=== PATIENT | female | born 1965 | race Caucasian/White ===

== ENCOUNTER 2017-02-13 20:40 | Observation (INO) ==
[2017-02-13 21:37] LABS: Bilirubin,Urine Negative (Negative); Blood,Urine Moderate (Negative); Clarity,Urine Cloudy (Clear); Color,Urine Yellow (Yellow); Glucose,Urine (UA) Normal (Normal); Ketones,Urine Negative (Negative); Leukocyte Esterase,Urine Moderate (Negative); Nitrite,Urine Negative (Negative); Protein,Urine Negative (Neg-Trace); Specific Gravity,Urine 1.026 (1.010-1.025); Urobilinogen,Urine Normal (Normal)
[2017-02-13 21:40] LABS: Bacteria,Urine Moderate per hpf (None-Few); Hyaline Casts,Urine None Seen per lpf (None-Few); Squamous Epithelial Cell,Urine Many per lpf (None-Few); WBC,Urine 15-30 per hpf (0-3)
[2017-02-13 22:06] LABS: Basophils # 0.1 K/mcL (0.0-0.2); Basophils % 0.4 %; Eosinophils # 0.1 K/mcL (0.0-0.6); Eosinophils % 0.4 %; Hematocrit 41.4 % (35.3-44.9); Hemoglobin 13.6 g/dL (11.5-15.4); Immature Granulocytes % 0.4 % (0-4); Immature Platelets 3.1 % (1.1-6.1); Lymphocytes # 1.3 K/mcL (0.6-4.6); Lymphocytes % 8.9 %; Mean Corpuscular HGB Conc 32.9 g/dL (31.6-35.5); Mean Corpuscular Hemoglobin 29.1 pg (28.0-33.3); Mean Corpuscular Volume 88.5 fL (83.0-100.0); Mean Platelet Volume 9.6 fL (9.4-12.4); Monocytes # 0.6 K/mcL (0.0-1.3); Monocytes % 4.5 %; Neutrophils # 12.1 K/mcL (1.6-8.9); Platelet Count 256 K/mcL (140-400); Red Blood Count 4.68 M/mcL (3.82-4.97); Red Cell Distribution Width 12.4 % (11.5-14.5); Segmented Neutrophils % 85.4 %
[2017-02-13] MEDS ORDERED: Ondansetron 4 MG/2 ML VIAL IVP ONE (22:15)
[2017-02-13] MEDS ORDERED: *HR* HYDROmorphone (PF) 1 MG/ML SYRINGE IVP ONE (22:15)
--- NOTE | 2017-02-13 22:18 | Emergency Department Note ---
Disposition Clinical Impression: Abdominal pain Qualifiers: Abdominal location: right lower quadrant Qualified Code(s): R10.31 - Right lower quadrant pain Acute appendicitis Qualifiers: Acute appendicitis type: with localized peritonitis Qualified Code(s): K35.3 - Acute appendicitis with localized peritonitis Disposition: Admitted As Inpatient Condition: Good Referrals: NO,PCP [Non-Partnered Physician] - Forms: Work/School Release, ED Satisfaction Letter Time of Disposition: 23:18 Abdominal Pain HPI - General Chief Complaint: ED Abdominal Pain Stated Complaint: lower rt abdominal pain nausea Time Seen by Provider: 02/13/17 21:39 Source: patient Mode of arrival: ambulatory Limitations: no limitations Nursing Notes Reviewed: Yes Vital Signs Reviewed: Yes - History of Present Illness HPI Narrative: Patient presents to the ED with the chief complaint of abdominal pain. Patient reports that approximately 3 PM this evening she had the sudden onset of diffuse bilateral lower abdominal fullness and urge to defecate. She went to the bathroom and had 2 episodes of diarrhea that she described as "black" but not tarry and did not have any blood. He states that shortly thereafter, the pain remained in her lower abdomen, but she also developed a sharp, stabbing right lower quadrant pain. She has a history of kidney stones but states this does not feel like that at all because she normally gets pain in her back. She has had a partial hysterectomy previously and had both her ovaries removed. She complains of nausea but no vomiting. No fever or chills, chest pain, shortness of breath, vaginal bleeding or discharge. States she is otherwise fairly healthy with no major medical problems. Has had decreased appetite since 3 PM has not had anything to eat something. She does still have her appendix. Pain Scale: 8 - Related Data Allergies Allergy/AdvReac Type Severity Reaction Status Date / Time morphine AdvReac Nausea Verified 02/13/17 21:21 All systems ED: reviewed and negative except as stated. Gastrointestinal: Reports: abdominal pain, nausea, melena (possibly ) Genitourinary: Denies: hematuria Musculoskeletal: Denies: back pain Integumentary: Denies: rash Neurological: Denies: headache Abdominal Pain PMH - Past Medical History Medical history: Reports: no medical history Female Surgical History: Reports: hysterectomy Psychiatric history: Reports: anxiety, depression - Social History Smoking status: Current every day smoker Alcohol use: Reports: none Drug use: Reports: none Physical Exam - General Limitations: no limitations General appearance: alert, in no apparent distress - Head Head exam: atraumatic, normocephalic, normal inspection - Eye Eye exam: Present: normal appearance, PERRL, EOMI - ENT ENT exam: normal exam, normal oropharynx, mucous membranes dry - Neck Neck exam: Present: normal inspection, full ROM, trachea midline - Respiratory Respiratory exam: Present: normal lung sounds bilaterally - Cardiovascular Cardiovascular exam: Present: regular rate, normal rhythm, normal heart sounds - Abdominal Exam Abdominal exam: Present: soft, tenderness, diminished bowel sounds, tenderness at McBurney's Point. Absent: distention, guarding, rebound, psoas sign, obturator sign, heel tap sign, Burgos's sign, Rovsing's sign, pulsatile mass Abdominal tenderness: Present: RLQ, moderate - Rectal Exam Rectal exam: Present: deferred (wanted to try and have BM) - Extremities Exam Extremities exam: Present: normal inspection, full ROM. Absent: tenderness, pedal edema - Neurological Exam Neurological exam: Present: alert, oriented X3 - Psychiatric Psychiatric exam: Present: normal affect, normal mood - Skin Skin exam: Present: warm, dry, intact, normal color Course Course Narrative: 51-year-old female presenting with right lower quadrant and diffuse lower abdominal pain, nausea. Lab work ordered, CT will be determined based on her evaluation and lab work. - Reevaluation(s) Reevaluation #1: Patient does appear to have infected urine as well as a leukocytosis. Chemistry and renal function pending. Due to her pain, we will CT her abdomen and pelvis to evaluate for nephrolithiasis. Due to her history of such and also will evaluate the appendix. Patient is agreeable. Time: 22:32 Reevaluation #2: Patient has appendicitis, 9 mm, no rupture or abscess. Spoke with the on-call surgeon, Dr. Garner. Will admit to his service. Requested Zosyn, pain medication, IV fluids. Patient agreeable. Vital Signs Temperature 97.7 F 02/13/17 21:18 Pulse Rate 88 02/13/17 21:18 Respiratory Rate 20 02/13/17 21:18 Blood Pressure 113/79 02/13/17 21:18 O2 Sat by Pulse Oximetry 99 02/13/17 21:18 Temperature 97.7 F 02/13/17 21:18 Pulse Rate 73 02/13/17 23:21 Respiratory Rate 16 02/13/17 23:21 Blood Pressure 107/69 02/13/17 23:21 O2 Sat by Pulse Oximetry 95 02/13/17 23:21 Oxygen Delivery Oxygen Delivery Room Air Abdominal Pain - Lab Data Result diagrams: 02/13/17 21:56 02/13/17 21:56 Lab Results 02/13/17 02/13/17 02/13/17 Range/Units 21:33 21:56 21:56 WBC 14.1 H (4.3-11.1) K/mcL RBC 4.68 (3.82-4.97) M/mcL Hgb 13.6 (11.5-15.4) g/dL Hct 41.4 (35.3-44.9) % MCV 88.5 (83.0-100.0) fL MCH 29.1 (28.0-33.3) pg MCHC 32.9 (31.6-35.5) g/dL RDW 12.4 (11.5-14.5) % Plt Count 256 (140-400) K/mcL MPV 9.6 (9.4-12.4) fL Immature Gran % 0.4 (0-4) % Seg Neutrophils % 85.4 % Lymphocytes % 8.9 % Monocytes % 4.5 % Eosinophils % 0.4 % Basophils % 0.4 % Neutrophils # 12.1 H (1.6-8.9) K/mcL Lymphocytes # 1.3 (0.6-4.6) K/mcL Monocytes # 0.6 (0.0-1.3) K/mcL Eosinophils # 0.1 (0.0-0.6) K/mcL Basophils # 0.1 (0.0-0.2) K/mcL Immature Plt Fraction 3.1 (1.1-6.1) % Sodium 139 (136-145) mEq/L Potassium 4.1 (3.5-4.5) mEq/L Chloride 105 (98-109) mEq/L Carbon Dioxide 27 (19-29) mEq/L BUN 17 (7-20) mg/dL Creatinine 0.89 (0.57-1.11) mg/dL Est GFR ( Amer) > 60 (> 60) Est GFR (Non-Af Amer) > 60 (> 60) BUN/Creatinine Ratio 19 (6-26) Glucose 125 H (70-99) mg/dL Calculated Osmolality 291 (280-300) Calcium 9.6 (8.6-10.8) mg/dL Total Bilirubin 0.3 (0.2-1.2) mg/dL Direct Bilirubin 0.1 (0.0-0.5) mg/dL Indirect Bilirubin 0.2 (0.0-1.2) mg/dL AST 16 (5-34) Units/L ALT 21 (0-55) Units/L Alkaline Phosphatase 90 (38-126) Units/L Serum Total Protein 7.7 (6.0-8.3) g/dL Albumin 3.7 (3.5-5.0) g/dL Globulin 4.0 H (2.4-3.5) g/dL Albumin/Globulin Ratio 0.9 L (1.1-2.2) Lipase 27 (8-78) Units/L Urine Color Yellow (Yellow) Urine Clarity Cloudy A (Clear) Urine pH 6.0 (5.0-8.0) pH Units Ur Specific [place] 1.026 H (1.010-1.025) Urine Protein Negative (Neg-Trace) mg/dL Urine Glucose (UA) Normal (Normal) mg/dL Urine Ketones Negative (Negative) mg/dL Urine Blood Moderate H (Negative) Urine Nitrite Negative (Negative) Urine Bilirubin Negative (Negative) Urine Urobilinogen Normal (Normal) mg/dL Ur Leukocyte Esterase Moderate H (Negative) Urine Microscopic RBC 5-15 H (0-3) per hpf Urine Microscopic WBC 15-30 H (0-3) per hpf Ur Squamous Epith Cells Many H (None-Few) per lpf Urine Bacteria Moderate H (None-Few) per hpf Hyaline Casts None Seen (None-Few) per lpf Ur Culture Indicated? YES A (NO) Attestation Statement - Attestation Attestation: I, Steve Mario MD, personally performed a history and physical exam of the patient and discussed their management with the resident. I reviewed the resident's note and agree with the documented findings, medical decision making , and plan of care. 41-year-old female presents to the emergency department with a complaint of diffuse lower abdominal pain which started gradually about 3 PM this afternoon. She had a couple of bowel movements but the pain continued. Movements were dark. No gross blood. No dysuria or gross hematuria. No increased urinary frequency. She does seem to have some decreased urine output. Some nausea but no vomiting or diarrhea. On examination patient is a well-developed obese female in no acute distress. She is alert and oriented 3. There is no cyanosis or diaphoresis. Breath sounds are clear and equal bilaterally. Heart regular rate and rhythm. Abdomen is soft with normal bowel sounds. There is mild diffuse lower abdominal tenderness with moderate right lower quadrant tenderness with mild guarding. No rebound tenderness. Labs reviewed. WBC 14.1 with 85.4% segs. Some UTI on urinalysis. CT of the abdomen and pelvis shows acute appendicitis with no evidence of perforation or abscess. The surgeon electronics system mechanic, Dr. Garner, was consulted and accepted admission of the patient.
[2017-02-13 22:22] LABS: Alanine Aminotransferase 21 Units/L (0-55); Albumin 3.7 g/dL (3.5-5.0); Albumin/Globulin Ratio 0.9 (1.1-2.2); Alkaline Phosphatase 90 Units/L (38-126); Aspartate Amino Transferase 16 Units/L (5-34); BUN/Creatinine Ratio 19 (6-26); Bilirubin,Direct 0.1 mg/dL (0.0-0.5); Bilirubin,Indirect 0.2 mg/dL (0.0-1.2); Bilirubin,Total 0.3 mg/dL (0.2-1.2); Blood Urea Nitrogen 17 mg/dL (7-20); Calcium 9.6 mg/dL (8.6-10.8); Carbon Dioxide 27 mEq/L (19-29); Chloride 105 mEq/L (98-109); Glucose 125 mg/dL (70-99); Lipase 27 Units/L (8-78); Osmolality,Calculated 291 (280-300); Potassium 4.1 mEq/L (3.5-4.5); Sodium 139 mEq/L (136-145); Total Protein 7.7 g/dL (6.0-8.3); eGFR For African Americans > 60 (> 60); eGFR For Non-African Americans > 60 (> 60)
[2017-02-13] MEDS ORDERED: Piperacillin/Tazobactam 3.375 GM in D5% in Water (Mini-Bag+) 100 ML IVPB ONE (23:13)
[2017-02-13] MEDS ORDERED: 0.9 % Sodium Chloride 1,000 ML IVC SCH (23:15)
[2017-02-13] MEDS ORDERED: *HR* HYDROmorphone (PF) 1 MG/ML SYRINGE IVP SCH (23:30)
[2017-02-14] MEDS ORDERED: Ketorolac 15 MG/ML VIAL IVP ONE ×2 (00:55→11:57)
[2017-02-14 01:36] LABS: Basophils # 0.1 K/mcL (0.0-0.2); Basophils % 0.4 %; Eosinophils # 0.1 K/mcL (0.0-0.6); Eosinophils % 0.4 %; Hematocrit 40.2 % (35.3-44.9); Hemoglobin 13.3 g/dL (11.5-15.4); Immature Granulocytes % 0.4 % (0-4); Lymphocytes # 1.8 K/mcL (0.6-4.6); Lymphocytes % 12.8 %; Mean Corpuscular HGB Conc 33.1 g/dL (31.6-35.5); Mean Corpuscular Hemoglobin 29.3 pg (28.0-33.3); Mean Corpuscular Volume 88.5 fL (83.0-100.0); Mean Platelet Volume 9.7 fL (9.4-12.4); Monocytes # 0.6 K/mcL (0.0-1.3); Monocytes % 4.5 %; Neutrophils # 11.6 K/mcL (1.6-8.9); Platelet Count 233 K/mcL (140-400); Red Blood Count 4.54 M/mcL (3.82-4.97); Red Cell Distribution Width 12.3 % (11.5-14.5); Segmented Neutrophils % 81.5 %
[2017-02-14] MEDS ORDERED: Ondansetron 4 MG/2 ML VIAL IVP PRN ×2 (01:39→13:58)
[2017-02-14] MEDS ORDERED: *HR* HYDROmorphone (PF) 1 MG/ML SYRINGE IVP PRN ×2 (01:45→13:58)
[2017-02-14] MEDS: Ringers Solution, Lactated 1,000 ML IVC SCH ×2 (01:53→08:52)
--- NOTE | 2017-02-14 09:17 | General Surg History&Physical ---
Date of Encounter: 02/14/17 Time of Encounter: 09:14 Assessment and Plan (1) Acute appendicitis Current Visit: Yes Status: Acute Plan for laparoscopic appendectomy. Risks, benefits, and expected outcomes explained to the patient and she agrees to proceed. The assessment and plan as outlined above was discussed with the patient and/or family members who expressed understanding and agreement. All questions were answered. Qualifiers: Acute appendicitis type: with localized peritonitis Qualified Code(s): K35.3 - Acute appendicitis with localized peritonitis History of Present Illness HPI: Ms. Martínez is a 51 year old female with right lower quadrant pain. The pain has been present since 5 PM yesterday. She has associated nausea no vomiting. Pain is moderate to severe in nature. It localized to right lower quadrant. She underwent a CT scan in the ER and the report by the ER physician is a was identified as appendicitis with periappendiceal stranding. 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) Alcohol use: none Drug use: none - Family History Mother Age: 65 Living Status: Still Living Hx Family Cardiac Disorders: No Hx Family Cancer: Yes (breast) Hx Family GI Disorders: No Hx Family Genitourinary Disorders: No Hx Family Endocrine Disorder: No Hx Family Musculoskeletal Disorders: Yes (spinal stenosis) Hx Family Neurologic Disorders: Yes (gibromyalgia) Hx Family Psychosocial Disorders: Yes (anxiety/ depression) Medications and Allergies Alprazolam [Xanax 0.5 MG Tablet] 0.5 mg PO TID PRN 02/13/17 [History] Citalopram [CeleXA] 30 mg PO DAILY 02/13/17 [History] Cranberry 1,000 mg PO DAILY 02/14/17 [History] Cyanocobalamin (Vitamin B-12) [Vitamin B12] 1,000 mcg PO DAILY 02/14/17 [History ] Ibuprofen [Motrin] 600 mg PO Q6HR PRN 02/14/17 [History] Magnesium Oxide [Magnesium] 400 mg PO DAILY 02/14/17 [History] Potassium Gluconate 90 mg PO DAILY 02/14/17 [History] Allergies morphine Adverse Reaction (Verified 02/13/17 21:21) Nausea Review of Systems All systems PM: reviewed and no additional remarkable complaints except as stated All systems PM: A 10-system review of systems was performed and is negative for pertinent findings except as documented above in the HPI. General Surgery Exam Initial Vital Signs Temp Pulse Resp BP Pulse Ox 97.7 F 88 20 113/79 99 02/13/17 21:18 02/13/17 21:18 02/13/17 21:18 02/13/17 21:18 02/13/17 21:18 - General physical appearance well nourished, no distress - Eyes PERRL - Neck trachea midline - Respiratory normal respiratory effort, clear to percussion - Cardiovascular Cardiovascular exam: Present: NR - Abdomen Abdomen general surgery: Present: soft, tender Abdominal Tenderness: Present: RLQ - Integumentary Integumentary general surgery: Present: no abnormal pigmentation - Psychiatric Psychiatric general surgery: Present: A&Ox3, speech is normal Results - Labs 02/14/17 01:25 02/13/17 21:56 Abnormal lab results WBC 14.2 K/mcL (4.3-11.1) H 02/14/17 01:25 Neutrophils # 11.6 K/mcL (1.6-8.9) H 02/14/17 01:25 Glucose 125 mg/dL (70-99) H 02/13/17 21:56 Globulin 4.0 g/dL (2.4-3.5) H 02/13/17 21:56 Albumin/Globulin Ratio 0.9 (1.1-2.2) L 02/13/17 21:56 Urine Clarity Cloudy (Clear) A 02/13/17 21:33 Ur Specific [place] 1.026 (1.010-1.025) H 02/13/17 21:33 Urine Blood Moderate (Negative) H 02/13/17 21:33 Ur Leukocyte Esterase Moderate (Negative) H 02/13/17 21:33 Urine Microscopic RBC 5-15 per hpf (0-3) H 02/13/17 21:33 Urine Microscopic WBC 15-30 per hpf (0-3) H 02/13/17 21:33 Ur Squamous Epith Cells Many per lpf (None-Few) H 02/13/17 21:33 Urine Bacteria Moderate per hpf (None-Few) H 02/13/17 21:33 Ur Culture Indicated? YES (NO) A 02/13/17 21:33 All other labs normal.
[2017-02-14] MEDS ORDERED: *HR* FentaNYL (PF) 100 MCG/2 ML VIAL ONE ×2 (09:24→10:52)
[2017-02-14] MEDS ORDERED: *HR* Propofol 200 MG/20 ML VIAL IVP ONE (09:24)
[2017-02-14] MEDS ORDERED: *HR* Midazolam HCl 2 MG/2 ML VIAL ONE (09:24)
[2017-02-14] MEDS ORDERED: Dexamethasone 4 MG/ML VIAL ONE (09:24)
[2017-02-14] MEDS ORDERED: Ondansetron 4 MG/2 ML VIAL ONE (09:24)
--- NOTE | 2017-02-14 10:05 | Anesthesia Evaluation PreOp ---
Date of Encounter: 02/14/17 Time of Encounter: 10:03 - Past History Planned Operation: Laparoscopic Appendectomy Cardiac History: Denies any Significant Hx Pulmonary History: Smoker (35 years) BILL CLERK History: Denies Any Significant HX Other Medical History: Other (obesity BMI=43.3, anxiety/depression) Anesthesia History: No Prior Anesthetic Complications, Past Anesthesia Test: Negative (02/14/2017) Alcohol Use: none Drug use: none Medications and Allergies Alprazolam [Xanax 0.5 MG Tablet] 0.5 mg PO TID PRN 02/13/17 [History] Citalopram [CeleXA] 30 mg PO DAILY 02/13/17 [History] Cranberry 1,000 mg PO DAILY 02/14/17 [History] Cyanocobalamin (Vitamin B-12) [Vitamin B12] 1,000 mcg PO DAILY 02/14/17 [History ] Ibuprofen [Motrin] 600 mg PO Q6HR PRN 02/14/17 [History] Magnesium Oxide [Magnesium] 400 mg PO DAILY 02/14/17 [History] Potassium Gluconate 90 mg PO DAILY 02/14/17 [History] Allergies morphine Adverse Reaction (Verified 02/13/17 21:21) Nausea - Meds/Allergy Pre-op Review Medications Reviewed: Yes Allergies Reviewed: Yes Beta Blockers on Current Med List: No Anesthesia Results - Labs 02/14/17 01:25 02/13/17 21:56 Anesthesia Exam Vital Signs/O2 Sat, Most Current Temp Pulse Resp BP Pulse Ox 97.7 F 74 15 99/62 92 02/14/17 08:20 02/14/17 08:20 02/14/17 08:20 02/14/17 08:20 02/14/17 08:20 Height: 5'5''/1.65 m Weight: 259 lbs/117.9 kg NPO (# of Hours): 8 Pain Scale: 0 Pain Scale Used: Numeric (1 - 10) - HEENT Pupil (Motor): EOMI Mallampati: III Teeth: Normal Oral Opening: Greater than 3 - BILL CLERK LOC: Oriented BILL CLERK Motor: Normal RUE, Normal LUE, Normal RLE, Normal LLE, Normal Face BILL CLERK Sensory: Normal: RUE, LUE, RLE, LLE, Face - Cardiac Rhythm: Regular Murmur: None - Pulmonary Breath Sounds: bilateral Clear Respiratory Effort: Symmetrical Anesthesia Assess/Plan ASA Score: 3 Modified Collette Scale for Level of Consciousness: Cooperative, oriented, and tranquil Anesthetic Plan: General Monitoring Plan: Standard Monitors Recovery Plan: PACU
[2017-02-14] MEDS ORDERED: Albuterol 2.5 MG/3 ML NEBULIZER IH ONE ×2 (10:13→13:58)
[2017-02-14] MEDS ORDERED: Albuterol 2.5 MG/3 ML NEBULIZER ONE (10:19)
--- NOTE | 2017-02-14 10:24 | Operative Note ---
Date of procedure: 02/14/17 Pre-op diagnosis: appendicitis Post-op diagnosis: same Procedure: Laparoscopic Appendectomy Anesthesia: DIANE Surgeon: Emre Garner Estimated blood loss (cc): 5 Condition: stable Disposition: same day Procedure in Detail: After informed consent, patient was taken to the operating room placed in supine position. After adequate sedation anesthesia the abdomen was prepped and draped. A 12 mm cannula was placed in the umbilicus. A 5 mm cannulas placed in suprapubic region and the left lower quadrant. Camera was inserted and the abdomen after a pneumoperitoneum. 2 [place] graspers were used to identify the base of the appendix. A appendiceal window was created. A VICKY endoscopic stapler was placed across the base. A vascular load was placed across the mesoappendix. Once the appendix was was placed in an Endobag and removed through the umbilicus. The right lower quadrant was suctioned dry no bleeding was identified. Remainder the pneumoperitoneum was evacuated. The umbilicus was closed with an 0 Vicryl suture in [id number] fashion. Skin was closed with 4-0 Vicryl suture and Dermabond.
[2017-02-14] MEDS ORDERED: CefOXitin 2,000 MG VIAL IVPB ONE (10:38)
[2017-02-14] MEDS ORDERED: Acetaminophen IV 1,000 MG/100 ML INFUS..BTL ONE (10:52)
[2017-02-14] MEDS ORDERED: Neostigmine Methylsulfate 3 MG/3 ML SYRINGE ONE (11:08)
[2017-02-14] MEDS ORDERED: Gabapentin 300 MG CAPSULE PO ONE (11:57)
--- NOTE | 2017-02-14 12:01 | Anesthesia Evaluation Post Op ---
Date of Encounter: 02/14/17 Time of Encounter: 11:59 - Vital Signs Vital Signs: Vital Signs/O2 Sat/Glucose, Most Current Temp Pulse Resp BP Pulse Ox 02/14/17 11:38 77 18 110/61 97 02/14/17 11:28 94 18 101/87 98 02/14/17 11:18 97.7 F 101 20 120/76 93 02/14/17 08:20 97.7 F 74 15 99/62 92 - Lungs Lungs: Clear Ascult./Percussion - Airway Airway: Non-obstructed - Cardiovascular Regular Rate - Mental Status Mental Status: Alert & Oriented, Answers Appropriately - Pain Pain Scale: 5 (adding addl Toradol) Pain Scale used: Numeric (1 - 10) - Nausea Vomiting Nausea Vomiting: Not Present - Hydration Hydration: Ice chips, Has not voided - Discharge PostOp Status: Transfer Patient to floor Anes Supervising Prov Stmt: Pt seen/evaluated, VSS and pt has met criteria for discharge to home. - MD Rose
[2017-02-14] MEDS ORDERED: Ringers Solution, Lactated 1,000 ML IVC SCH (13:58)
[2017-02-14] MEDS ORDERED: *HR* OxyCODONE/APAP 5/325 TABLET PO PRN (13:58)
[2017-02-14 14:06] VITALS: BP 96/61
--- NOTE | 2017-02-14 14:42 | Discharge Summary ---
Date of Encounter: 02/14/17 Time of Encounter: 14:39 - Discharge Diagnosis (1) Acute appendicitis Priority: Primary Status: Resolved Qualifiers: Acute appendicitis type: with localized peritonitis Qualified Code(s): K35.3 - Acute appendicitis with localized peritonitis - Discharge Medications Prescriptions: OxyCODONE/APAP 5/325 [Percocet 5/325 MG] 1 each PO Q6HR PRN #30 tablet PRN Reason: Pain Docusate [Colace] 100 mg PO BID #30 capsule Home Medications: Alprazolam [Xanax 0.5 MG Tablet] 0.5 mg PO TID PRN 02/13/17 [History] Citalopram [CeleXA] 30 mg PO DAILY 02/13/17 [History] Cranberry 1,000 mg PO DAILY 02/14/17 [History] Cyanocobalamin (Vitamin B-12) [Vitamin B12] 1,000 mcg PO DAILY 02/14/17 [History ] Docusate [Colace] 100 mg PO BID #30 capsule 02/14/17 [Rx] Ibuprofen [Motrin] 600 mg PO Q6HR PRN 02/14/17 [History] Magnesium Oxide [Magnesium] 400 mg PO DAILY 02/14/17 [History] OxyCODONE/APAP 5/325 [Percocet 5/325 MG] 1 each PO Q6HR PRN #30 tablet 02/14/17 [Rx] Potassium Gluconate 90 mg PO DAILY 02/14/17 [History] Allergies/Adverse Reactions: Allergies morphine Adverse Reaction (Verified 02/13/17 21:21) Nausea General Surgery Exam Initial Vital Signs Temp Pulse Resp BP Pulse Ox 97.7 F 88 20 113/79 99 02/13/17 21:18 02/13/17 21:18 02/13/17 21:18 02/13/17 21:18 02/13/17 21:18 - General physical appearance well developed, well nourished, no distress - Eyes normal ocular movement - ENT normal mucosa, atraumatic, normocephalic - Neck trachea midline - Respiratory normal respiratory effort, clear to auscultation - Cardiovascular Cardiovascular exam: Present: RRR, 15, 16 - Abdomen Abdomen general surgery: Present: bowel sounds present, soft, tender (Expected postoperative tenderness) - Incision Incision: Present: clean and dry, intact - Integumentary Integumentary general surgery: Present: warm and dry - Neurologic Present: CN 2-12 grossly intact - Musculoskeletal Present: normal gait, normal posture - Psychiatric Psychiatric general surgery: Present: appropriate, oriented to person, oriented to place, oriented to time, speech is normal, memory intact Date of admission: 02/13/17 23:35 Primary care physician: Shekhar Arguelles MD Discharging clinician: Emre Garner ([facility]) Anticipated date of discharge: 02/14/17 - Patient Status Disposition: Home, Self-Care Condition: Good Overall status at discharge: patient is progressing back to baseline - Discharge Instructions Follow Up With: Shekhar Arguelles MD [Primary Care Provider] - Emre Garner DO [Partnered Physician] - 02/26/17 2:50 pm (surgery follow-up) Forms: Work/School Release Additional Instructions: #1 may shower, no tub bath for 2 weeks #2 wash incisions with soap and water and pat dry daily #3 no lifting, pushing, pulling more than 15 pounds for the next 2 weeks #4 no driving until off narcotics for 24 hours and able to safely react in the car #5 may climb stairs - Diet and Activity Diet: advance to your usual diet - Hospital Course Hospital course: Ms. Martínez is a 51 year old female presented to the hospital with acute onset abdominal pain. She was found to have acute appendicitis and was taken to the operating room for laparoscopic appendectomy with Dr. Garner. We will begin discharge to home when the patient meets discharge criteria including vital signs are stable and afebrile, tolerating liquids without nausea or vomiting, pain is well controlled, ambulating and voiding without difficulty. We will plan for outpatient follow-up in the next 10-14 days. - Time Spent with Patient Total time spent providing and/or coordinating discharge services: Less than 30 minutes Labs on day of discharge: Labs from last 24 hours 02/14/17 02/14/17 02:10 01:25 WBC 14.2 H RBC 4.54 Hgb 13.3 Hct 40.2 MCV 88.5 MCH 29.3 MCHC 33.1 RDW 12.3 Plt Count 233 MPV 9.7 Immature Gran % 0.4 Seg Neutrophils % 81.5 Lymphocytes % 12.8 Monocytes % 4.5 Eosinophils % 0.4 Basophils % 0.4 Neutrophils # 11.6 H Lymphocytes # 1.8 Monocytes # 0.6 Eosinophils # 0.1 Basophils # 0.1 Urine Test Negative - Attending Attestation I examined this patient and my medical decision-making was reviewed with the LANDSCAPE NURSERYMAN/PA/Advanced Practice Nurse/Resident Physician. I agree with the documented findings, disposition and treatment plan as described except to the extent set forth below.
== END 2017-02-14 17:59 | disposition home or self-care (01) ==
LOC: 3ANU 20:40 → EMEROO 20:40 → 3ANU 23:59
PROVIDERS: ADMIT Surgery; ATTEND Surgery

== ENCOUNTER 2017-06-17 00:02 | Observation (INO) ==
[2017-06-17] MEDS ORDERED: Metoclopramide 10 MG/2 ML VIAL ONE (03:12)
[2017-06-17 03:20] LABS: BUN/Creatinine Ratio 20 (6-26); Blood Urea Nitrogen 15 mg/dL (7-20); Carbon Dioxide 22 mEq/L (19-29); Chloride 108 mEq/L (98-109); Glucose 98 mg/dL (70-99); Magnesium 2.2 mg/dL (1.6-2.6); Osmolality,Calculated 287 (280-300); Potassium 3.9 mEq/L (3.5-4.5); Sodium 138 mEq/L (136-145); eGFR For African Americans > 60 (> 60); eGFR For Non-African Americans > 60 (> 60)
[2017-06-17 03:25] LABS: Prothrombin Time 11.1 Seconds (9.4-12.1)
[2017-06-17 03:27] LABS: Bilirubin,Urine Negative (Negative); Blood,Urine Negative (Negative); Clarity,Urine Clear (Clear); Color,Urine Yellow (Yellow); Glucose,Urine (UA) Normal (Normal); Ketones,Urine Negative (Negative); Leukocyte Esterase,Urine Trace (Negative); Nitrite,Urine Negative (Negative); Protein,Urine Negative (Neg-Trace); Specific Gravity,Urine 1.011 (1.010-1.025); Urobilinogen,Urine Normal (Normal)
[2017-06-17 03:29] LABS: Bacteria,Urine None Seen per hpf (None-Few); Hyaline Casts,Urine None Seen per lpf (None-Few); Squamous Epithelial Cell,Urine Many per lpf (None-Few); WBC,Urine 0-3 per hpf (0-3)
[2017-06-17 03:53] LABS: Basophils # 0.1 K/mcL (0.0-0.2); Basophils % 0.7 %; Eosinophils # 0.2 K/mcL (0.0-0.6); Hematocrit 39.4 % (35.3-44.9); Hemoglobin 12.7 g/dL (11.5-15.4); Immature Granulocytes % 0.2 % (0-4); Lymphocytes # 3.4 K/mcL (0.6-4.6); Lymphocytes % 36.1 %; Mean Corpuscular HGB Conc 32.2 g/dL (31.6-35.5); Mean Corpuscular Hemoglobin 28.2 pg (28.0-33.3); Mean Corpuscular Volume 87.4 fL (83.0-100.0); Mean Platelet Volume 9.3 fL (9.4-12.4); Monocytes # 0.6 K/mcL (0.0-1.3); Monocytes % 6.3 %; Neutrophils # 5.2 K/mcL (1.6-8.9); Platelet Count 252 K/mcL (140-400); Red Blood Count 4.51 M/mcL (3.82-4.97); Red Cell Distribution Width 12.4 % (11.5-14.5); Segmented Neutrophils % 54.7 %
--- NOTE | 2017-06-17 04:21 | Emergency Department Note ---
Disposition Clinical Impression: Lesion of temporal lobe Headache Qualifiers: Headache type: unspecified Headache chronicity pattern: acute headache Intractability: not intractable Qualified Code(s): R51 - Headache Syncope Qualifiers: Syncope type: unspecified Qualified Code(s): R55 - Syncope and collapse Disposition: Admitted As Inpatient Condition: Fair Time of Disposition: 06:26 Headache HPI - General Chief Complaint: ED Headache Stated Complaint: headache passed out in car two days ago Time Seen by Provider: 06/17/17 03:48 Limitations: no limitations Nursing Notes Reviewed: Yes Vital Signs Reviewed: Yes - History of Present Illness HPI Narrative: Patient is a 51-year-old female who presents to [facility] ED with a chief complaint of headache. States her symptoms started 2 days ago. States at the time she had been sitting in her car and passed out for a few minutes. When she awoke, she was unsure of what had happened. Denies any prior episodes like this. States ever since then she has had a pain in the back of her head. No nausea, vomiting, fever or chills. No chest pain or shortness of breath. No problems with urination or bowel movements. Pt Subjective Complaint: headache Onset (ago): day(s) Onset description: gradual Location: occipital Pain Severity: moderate Pain Scale: 4 Quality: aching Improves with: nothing Worsens with: none Context: occurred at rest Associated symptoms: Reports: none. Denies: chest pain, cough, fever, nausea, vomiting, neck stiffness Treatments prior to arrival: none - Related Data Home Medications Medication Instructions Recorded Confirmed ALPRAZolam [Xanax 0.5 MG Tablet] 0.5 mg PO TID PRN 02/13/17 06/17/17 Citalopram [CeleXA] 30 mg PO DAILY 02/13/17 06/17/17 Cranberry 1,000 mg PO DAILY 02/14/17 06/17/17 Cyanocobalamin (Vitamin B-12) 1,000 mcg PO DAILY 02/14/17 06/17/17 [Vitamin B12] Magnesium Oxide [Magnesium] 400 mg PO DAILY 02/14/17 06/17/17 Potassium Gluconate 90 mg PO DAILY 02/14/17 06/17/17 Allergies Allergy/AdvReac Type Severity Reaction Status Date / Time morphine AdvReac Nausea Verified 02/13/17 21:21 All systems ED: reviewed and negative except as stated. Headache PMH - Past Medical History Medical history: Reports: no medical history Female Surgical History: Reports: hysterectomy Psychiatric history: Reports: anxiety, depression - Social History Smoking Status: Current every day smoker Alcohol use: Reports: rarely Drug use: Reports: none Physical Exam - General Limitations: no limitations General appearance: alert, in no apparent distress - Head Head exam: atraumatic, normocephalic, normal inspection - Eye Eye exam: Present: normal appearance, PERRL, EOMI - ENT ENT exam: normal exam, normal oropharynx, mucous membranes moist - Neck Neck exam: Present: normal inspection, full ROM, trachea midline - Chest Chest inspection: Present: normal inspection, symmetric chest wall rise - Respiratory Respiratory exam: Present: normal lung sounds bilaterally - Cardiovascular Cardiovascular exam: Present: regular rate, normal rhythm, normal heart sounds - Abdominal Exam Abdominal exam: Present: soft, Non-Tender. Absent: tenderness, distention, guarding, rebound, rigidity - Extremities Exam Extremities exam: Present: normal inspection, full ROM. Absent: tenderness, pedal edema - Back Exam Back exam: Present: normal inspection, full ROM. Absent: tenderness - Neurological Exam Neurological exam: Present: alert, oriented X3, CN II-XII intact. Absent: motor sensory deficit - Psychiatric Psychiatric exam: Present: normal affect, normal mood - Skin Skin exam: Present: warm, dry, intact, normal color Course Course Narrative: Patient seen and examined. A posterior headache radiates into her neck. No fevers or chills or neck stiffness to suggest meningitis. This is not the worse headache of her life. Patient had a syncopal episode 2 days ago. Basic labs, EKG, CT head ordered. - Reevaluation(s) Reevaluation #1: The emergency department experienced [employer] downtime while this patient was being seen. Her lab work is in the paper charting. No acute abnormalities on paper chart. Her CT scan is still pending. Time: 05:00 Reevaluation #2: CT of the head shows asymmetric area of low attenuation in the left temporal lobe. Follow-up MRI with diffusion imaging is recommended. No other acute abnormalities. I spoke the patient about the results. Due to concern for possible mass in this region versus a possible stroke as well as concern for nonexertional syncope, we will go ahead and admit to the medical service for further evaluation and MRI today. I spoke with the hospitalist Dr. Cordon who has accepted patient for admission. Time: 06:46 Vital Signs Temperature 97.7 F 06/17/17 00:03 Pulse Rate 90 06/17/17 00:03 Respiratory Rate 18 06/17/17 00:03 Blood Pressure 137/85 06/17/17 00:03 O2 Sat by Pulse Oximetry 94 06/17/17 00:03 Temperature 97.5 F L 06/17/17 07:18 Pulse Rate 64 06/17/17 07:18 Respiratory Rate 14 06/17/17 07:18 Blood Pressure 102/66 06/17/17 07:18 O2 Sat by Pulse Oximetry 96 06/17/17 07:18 Oxygen Delivery Oxygen Delivery Room Air Headache - Medical Records Medical records reviewed: Yes I reviewed the patient's medical records. - Lab Data Lab results reviewed: Yes I reviewed the patient's lab results. Result diagrams: 06/17/17 03:18 06/17/17 03:18 Lab Results 06/17/17 06/17/17 06/17/17 Range/Units 02:54 02:54 03:18 WBC 9.4 (4.3-11.1) K/mcL RBC 4.51 (3.82-4.97) M/mcL Hgb 12.7 (11.5-15.4) g/dL Hct 39.4 (35.3-44.9) % MCV 87.4 (83.0-100.0) fL MCH 28.2 (28.0-33.3) pg MCHC 32.2 (31.6-35.5) g/dL RDW 12.4 (11.5-14.5) % Plt Count 252 (140-400) K/mcL MPV 9.3 L (9.4-12.4) fL Immature Gran % 0.2 (0-4) % Seg Neutrophils % 54.7 % Lymphocytes % 36.1 % Monocytes % 6.3 % Eosinophils % 2.0 % Basophils % 0.7 % Neutrophils # 5.2 (1.6-8.9) K/mcL Lymphocytes # 3.4 (0.6-4.6) K/mcL Monocytes # 0.6 (0.0-1.3) K/mcL Eosinophils # 0.2 (0.0-0.6) K/mcL Basophils # 0.1 (0.0-0.2) K/mcL PT (9.4-12.1) Seconds INR APTT (26.0-36.0) Seconds Sodium (136-145) mEq/L Potassium (3.5-4.5) mEq/L Chloride (98-109) mEq/L Carbon Dioxide (19-29) mEq/L BUN (7-20) mg/dL Creatinine (0.57-1.11) mg/dL Est GFR ( Amer) (> 60) Est GFR (Non-Af Amer) (> 60) BUN/Creatinine Ratio (6-26) Glucose (70-99) mg/dL Calculated Osmolality (280-300) Calcium (8.6-10.8) mg/dL Magnesium (1.6-2.6) mg/dL Troponin I (0-0.03) ng/mL Urine Color Yellow (Yellow) Urine Clarity Clear (Clear) Urine pH 6.0 (5.0-8.0) pH Units Ur Specific [place] 1.011 (1.010-1.025) Urine Protein Negative (Neg-Trace) mg/dL Urine Glucose (UA) Normal (Normal) mg/dL Urine Ketones Negative (Negative) mg/dL Urine Blood Negative (Negative) Urine Nitrite Negative (Negative) Urine Bilirubin Negative (Negative) Urine Urobilinogen Normal (Normal) mg/dL Ur Leukocyte Esterase Trace H (Negative) Urine Microscopic RBC 5-15 H (0-3) per hpf Urine Microscopic WBC 0-3 (0-3) per hpf Ur Squamous Epith Cells Many H (None-Few) per lpf Urine Bacteria None Seen (None-Few) per hpf Hyaline Casts None Seen (None-Few) per lpf Ur Culture Indicated? YES A (NO) Urine Opiates Screen Negative (Jzbazv=688) ng/mL Ur Barbiturates Screen Negative (Fpulme=610) ng/mL Ur Phencyclidine Scrn Negative (Cutoff=25) ng/mL Ur Amphetamines Screen Negative (Bobsye=7626) ng/mL U Benzodiazepines Scrn Positive H (Gpffkj=057) ng/mL Urine Cocaine Screen Negative (Cutoff= 300) ng/mL U Marijuana (THC) Screen Negative (Cutoff = 50) ng/mL 06/17/17 06/17/17 06/17/17 Range/Units 03:18 03:18 03:18 WBC (4.3-11.1) K/mcL RBC (3.82-4.97) M/mcL Hgb (11.5-15.4) g/dL Hct (35.3-44.9) % MCV (83.0-100.0) fL MCH (28.0-33.3) pg MCHC (31.6-35.5) g/dL RDW (11.5-14.5) % Plt Count (140-400) K/mcL MPV (9.4-12.4) fL Immature Gran % (0-4) % Seg Neutrophils % % Lymphocytes % % Monocytes % % Eosinophils % % Basophils % % Neutrophils # (1.6-8.9) K/mcL Lymphocytes # (0.6-4.6) K/mcL Monocytes # (0.0-1.3) K/mcL Eosinophils # (0.0-0.6) K/mcL Basophils # (0.0-0.2) K/mcL PT 11.1 (9.4-12.1) Seconds INR 1.0 APTT 30.0 (26.0-36.0) Seconds Sodium 138 (136-145) mEq/L Potassium 3.9 (3.5-4.5) mEq/L Chloride 108 (98-109) mEq/L Carbon Dioxide 22 (19-29) mEq/L BUN 15 (7-20) mg/dL Creatinine 0.75 (0.57-1.11) mg/dL Est GFR ( Amer) > 60 (> 60) Est GFR (Non-Af Amer) > 60 (> 60) BUN/Creatinine Ratio 20 (6-26) Glucose 98 (70-99) mg/dL Calculated Osmolality 287 (280-300) Calcium 9.0 (8.6-10.8) mg/dL Magnesium 2.2 (1.6-2.6) mg/dL Troponin I 0.01 (0-0.03) ng/mL Urine Color (Yellow) Urine Clarity (Clear) Urine pH (5.0-8.0) pH Units Ur Specific [place] (1.010-1.025) Urine Protein (Neg-Trace) mg/dL Urine Glucose (UA) (Normal) mg/dL Urine Ketones (Negative) mg/dL Urine Blood (Negative) Urine Nitrite (Negative) Urine Bilirubin (Negative) Urine Urobilinogen (Normal) mg/dL Ur Leukocyte Esterase (Negative) Urine Microscopic RBC (0-3) per hpf Urine Microscopic WBC (0-3) per hpf Ur Squamous Epith Cells (None-Few) per lpf Urine Bacteria (None-Few) per hpf Hyaline Casts (None-Few) per lpf Ur Culture Indicated? (NO) Urine Opiates Screen (Jjtvei=211) ng/mL Ur Barbiturates Screen (Sdxtgp=368) ng/mL Ur Phencyclidine Scrn (Cutoff=25) ng/mL Ur Amphetamines Screen (Ygcfre=9048) ng/mL U Benzodiazepines Scrn (Czxahf=887) ng/mL Urine Cocaine Screen (Cutoff= 300) ng/mL U Marijuana (THC) Screen (Cutoff = 50) ng/mL - Radiology Data Radiology results reviewed: Yes I reviewed the patient's radiology results. Head CT 06/17/17 00:00 IMPRESSION: 1. Asymmetric area of low attenuation in the region of the left temporal lobe. Finding may be artifactual however true area of asymmetric low attenuation involving the left temporal lobe cannot be excluded based on this examination. Follow-up MRI examination with diffusion imaging may be helpful for more complete evaluation. 2. Otherwise no evidence of acute intracranial abnormality. D/ / Julius Raymundo MD / Julius Raymundo MD Interpreting Provider: Julius Raymundo MD - EKG Data EKG attestation: Yes I reviewed and interpreted this EKG. EKG results narrative: EKG done at 350 shows sinus bradycardia with a rate of [address] elevation or depression. Normal axis. EKG appears unchanged from prior EKG done 04/04/2014. Attestation Statement - Attestation Attestation: I, Altaf Mai, examined this patient and my medical decision-making was reviewed with the BIOINFORMATICS DEVELOPER/PA/Advanced Practice Nurse/Resident Physician. I agree with the documented findings, disposition and treatment plan as described except to the extent set forth below. 51-year-old female presents with concerns of headache. Patient states she syncopized 2 days ago and has since had a persistent headache. Patient denies a history of similar headaches in the past. Denies fever, chills, vomiting, chest pain, shortness of breath, palpitations. CT of the head showed area of low attenuation in the left temporal area. No focal neurologic deficits noted on exam in the emergency department. Patient will be admitted to the hospital for further evaluation and likely MRI and follow-up with neurology. Patient is stable in the emergency department
[2017-06-17] MEDS ORDERED: 0.9 % Sodium Chloride 1,000 ML IVC ONE (06:45)
[2017-06-17] MEDS ORDERED: Ondansetron 4 MG/2 ML VIAL IVP PRN (06:54)
[2017-06-17] MEDS ORDERED: Acetaminophen 325 MG TABLET PO PRN (06:54)
[2017-06-17] MEDS ORDERED: Naloxone 0.4 MG/ML INJ IVP PRN (06:54)
[2017-06-17] MEDS ORDERED: Ketorolac 30 MG/ML VIAL IVP PRN (06:54)
[2017-06-17] MEDS ORDERED: ALPRAZolam 0.5 MG TABLET PO PRN (06:58)
--- NOTE | 2017-06-17 07:02 | Internal Med History&Physical ---
Date of Encounter: 06/17/17 Time of Encounter: 06:59 Assessment and Plan (1) Depression with anxiety Current visit: Yes Status: Acute Continue Xanax per home dose. And Celexa (2) DVT prophylaxis Current visit: Yes Status: Acute Encourage ambulation. She does not require pharmacological prophylaxis. (3) Headache Current visit: Yes Status: Acute We will treat with Tylenol. She has recent onset headache. I am concerned this may be related to her CT findings suspicious for intracranial mass. Qualifiers: Headache type: unspecified Headache chronicity pattern: acute headache Intractability: not intractable Qualified Code(s): R51 - Headache (4) Lesion of temporal lobe Current visit: Yes Status: Acute Radiology report could be artifact but could also be a mass lesion of the left temporal lobe which could have caused her syncope or even a seizure. Could be the source of her new headaches. I am concerned of possibly early stage glioblastoma multiforme. We will obtain an MRI with and without contrast. (5) Syncope Current visit: Yes Status: Acute We will monitor on telemetry. Obtain orthostatics. Trend troponin. Obtain echocardiogram and carotid Dopplers. Qualifiers: Syncope type: unspecified Qualified Code(s): R55 - Syncope and collapse (6) Tobacco use Current visit: Yes Status: Acute I advised smoking cessation and provided brief counseling. Internal Medicine - H&P: HPI Chief complaint: Headache Admitted From: Emergency Dept Plans for Post Hospital Care: Home History of present illness: Ms. Martínez is a 51 year old female with past medical history significant for anxiety and depression who presented to the hospital for evaluation of headache and syncope. She says that 2 days ago while sitting in her car she had an episode where she passed out. She denies any prodromal symptoms, she reports that she was confused after she came to denies chest pain palpitations and diaphoresis. Since then she started having dull moderate 3/10 headache in the back of her head and neck, constant, not related to head movements, not associated with disequilibrium, vision changes or hearing changes. She reports ringing in her ears for the last few years unchanged. She denies changes in smell or taste. A 10 point review of systems was negative. 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 She reports that she smokes 10 cigarettes a day, denies alcohol abuse and denies recreational drug use 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 Alcohol use: rarely Drug use: none - Family History Mother Living Status: Still Living Hx Family Cardiac Disorders: No Hx Family Cancer: Yes (breast) Hx Family GI Disorders: No Hx Family Endocrine Disorder: No Hx Family Neurologic Disorders: Yes (gibromyalgia) Internal Medicine - H&P: Meds ALPRAZolam [Xanax 0.5 MG Tablet] 0.5 mg PO TID PRN 02/13/17 [History] Citalopram [CeleXA] 30 mg PO DAILY 02/13/17 [History] Cranberry 1,000 mg PO DAILY 02/14/17 [History] Cyanocobalamin (Vitamin B-12) [Vitamin B12] 1,000 mcg PO DAILY 02/14/17 [History ] Magnesium Oxide [Magnesium] 400 mg PO DAILY 02/14/17 [History] Potassium Gluconate 90 mg PO DAILY 02/14/17 [History] Allergies morphine Adverse Reaction (Verified 02/13/17 21:21) Nausea All Systems PM: A 10-system review of systems was performed and is negative for pertinent findings except as documented above in the HPI. - Constitutional Vitals: Temp Pulse Resp BP Pulse Ox 97.7 F 66 16 110/78 97 06/17/17 00:03 06/17/17 06:33 06/17/17 06:33 06/17/17 06:33 06/17/17 06:33 General appearance: Present: A&O X 3 - Eye Eye exam: Present: PERRL, conjuntiva pink, sclera anicteric Pupils: Present: PERRL - Neck Neck exam general surgery: Present: supple, trachea midline. Absent: lymphadenopathy - Respiratory Respiratory exam: Present: CTAB. Absent: accessory muscle use, rales, rhonchi, wheezes - Cardiovascular Cardiovascular exam: Present: RRR, +S1, +S2. Absent: diastolic murmur, gallop, rubs, systolic murmur - GI/Abdominal GI/Abdominal exam: Present: normal bowel sounds, soft, no peritoneal signs. Absent: distended, tenderness - Extremities Exam Extremities exam: Present: warm, radial pulses palpable and symmetrical. Absent : calf tenderness, cyanotic, pedal edema - Neurological Exam Neurological exam: Present: CN II-XII intact, oriented X3, no focal deficits. Absent: pronater drift, facial droop, speech deficit - Skin Skin exam: Present: dry, intact Internal Med - H&P Results - Labs CBC & Chem 7: 06/17/17 03:18 06/17/17 03:18 - EKG Data -: EKG Interpreted by Myself EKG shows normal: sinus rhythm, QRS complexes, ST-T waves Rate: bradycardia
[2017-06-17 07:27] LABS: Amphetamine Screen,Urine Negative ng/mL (Cutoff=1000); Barbiturate Screen,Urine Negative ng/mL (Cutoff=200); Benzodiazepines Screen,Urine Positive ng/mL (Cutoff=200); Cannabinoid Screen,Urine Negative ng/mL (Cutoff = 50); Cocaine Screen,Urine Negative ng/mL (Cutoff= 300); Opiate Screen,Urine Negative ng/mL (Cutoff=300); Phencyclidine Screen,Urine Negative ng/mL (Cutoff=25)
[2017-06-17] MEDS ORDERED: Magnesium Oxide 400 MG TABLET PO SCH (09:00)
[2017-06-17] MEDS ORDERED: POTASSIUM GLUCONATE 90 MG PO SCH (09:00)
--- NOTE | 2017-06-17 13:00 | Event Note ---
<Ancelmo Cam - Last Filed: 06/17/17 12:56> Date of Encounter: 06/17/17 Time of Encounter: 09:30 Pt was seen and examined by me. MRI of brain was normal with no intercranial mass identified. Pt's echo and carotid u/s pending results. Patient denies biting tongue, or urinating self during syncope. Patient reports likely being dehydrated that day and that her BP usually runs low. Patient denies n,v, photophobia, rhinorrhea, lacrimation, associated with headache. She denies DAVIS being worse in the morning. She reports DAVIS has improved. She has no obvious focal neurologic deficits on exam and her heart and lungs are regualr and clear. If echo and carotid studies are normal she may be able to go later today. <Robert Sequeira - Last Filed: 06/17/17 19:39> Date of Encounter: 06/17/17 Please see discharge summary from today.
--- NOTE | 2017-06-17 14:43 | Electrocardiograph Report ---
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
[2017-06-17 15:19] VITALS: BP 108/72
[2017-06-17] MEDS ORDERED: Nicotine 14 MG PATCH.TD24 TD SCH (15:45)
--- NOTE | 2017-06-17 17:41 | Discharge Summary ---
<Ancelmo Cam - Last Filed: 06/17/17 18:01> Date of Encounter: 06/17/17 Time of Encounter: 17:34 - Discharge Diagnosis (1) Headache Priority: Primary Status: Acute Qualifiers: Headache type: unspecified Headache chronicity pattern: acute headache Intractability: not intractable Qualified Code(s): R51 - Headache (2) Syncope Priority: Primary Status: Acute Qualifiers: Syncope type: unspecified Qualified Code(s): R55 - Syncope and collapse (3) Lesion of temporal lobe Priority: Secondary Status: Acute Comments: Lesion turned out to be artifact from CT scan (4) Depression with anxiety Priority: Secondary Status: Acute - Discharge Medications Prescriptions: Aspirin [Lo-Dose Aspirin EC] 81 mg PO DAILY #30 tablet. Atorvastatin [Lipitor] 40 mg PO HS #30 tablet Home Medications: ALPRAZolam [Xanax 0.5 MG Tablet] 0.5 mg PO TID PRN 02/13/17 [History] Citalopram [CeleXA] 30 mg PO DAILY 02/13/17 [History] Cranberry 1,000 mg PO DAILY 02/14/17 [History] Cyanocobalamin (Vitamin B-12) [Vitamin B12] 1,000 mcg PO DAILY 02/14/17 [History ] Magnesium Oxide [Magnesium] 400 mg PO DAILY 02/14/17 [History] Potassium Gluconate 90 mg PO DAILY 02/14/17 [History] Aspirin [Lo-Dose Aspirin EC] 81 mg PO DAILY #30 tablet. 06/17/17 [Rx] Atorvastatin [Lipitor] 40 mg PO HS #30 tablet 06/17/17 [Rx] Allergies/Adverse Reactions: Allergies morphine Adverse Reaction (Verified 02/13/17 21:21) Nausea Procedures/tests Complete & Pending: Procedures Performed prior 72 hours Category Date Time Status MR head/brain wo/w con [MR] Stat MRI 06/17/17 06:56 Completed ECG 12 lead ECG [ECG] Routine Y 06/17/17 03:50 Completed EV carotid duplex imaging BI Routine Y 06/17/17 06:57 Completed EV echocardiogram Routine Y 06/17/17 06:55 Completed CThead: "FINDINGS: BRAIN/VENTRICLES: The ventricular system is normal in appearance. No evidence of mass effect or midline shift. There is asymmetric low attenuation of portion of left temporal lobe as compared to the right. Finding may in part be technical in nature however true area of abnormal low-attenuation involving the left temporal lobe cannot be excluded based on this examination. No other definite area of abnormal attenuation of brain parenchyma is identified. No abnormal extra-axial fluid collections are identified. ORBITS: The visualized portion of the orbits demonstrate no acute abnormality. SINUSES: There is a 1.3 cm rounded density in the inferior posterior left maxillary sinus which could represent mucous retention cyst or polyp. Smaller rounded area of low attenuation is identified slightly more superiorly along the medial aspect of the left maxillary sinus which could represent focal mucosal thickening versus tiny mucous retention cyst or polyp as well. Minimal mucosal thickening within few ethmoid air cells is identified. Mastoid air cells are well aerated. SOFT TISSUES/SKULL: No acute abnormality of the visualized skull or soft tissues. CT/CT head/brain wo con IMPRESSION: 1. Asymmetric area of low attenuation in the region of the left temporal lobe. Finding may be artifactual however true area of asymmetric low attenuation involving the left temporal lobe cannot be excluded based on this examination. Follow-up MRI examination with diffusion imaging may be helpful for more complete evaluation. 2. Otherwise no evidence of acute intracranial abnormality. " MRI Brain: "FINDINGS: INTRACRANIAL STRUCTURES/VENTRICLES: There is no acute infarct. No mass effect or midline shift. No abnormal extra-axial fluid collection. The ventricles and sulci are normal in size and configuration. The sellar/suprasellar regions appear unremarkable. The normal signal voids within the major intracranial vessels appear maintained. No abnormal focus of enhancement is seen within the brain. ORBITS: The visualized portion of the orbits demonstrate no acute abnormality. SINUSES: There is a retention cyst versus polyp in the left maxillary sinus. There is scattered minimal mucosal thickening in the remainder of the paranasal sinuses. The bilateral mastoid air cells are clear. BONES/SOFT TISSUES: The bone marrow signal intensity appears normal. The craniocervical junction is normal in appearance. MR/MR head/brain wo/w con IMPRESSION: No acute intracranial abnormality. No mass effect or abnormal intracranial enhancement." Echo: "Impressions: Normal LV systolic function, LVEF 65%. Normal left ventricular diastolic function. Normal right ventricular size and function. No significant valvular dysfunction. No evidence of pulmonary hypertension." Carotid Bilateral "Right proximal ICA suggestive of 40-59% stenosis by velocity No stenotic velocites noted on left" Date of admission: 06/17/17 06:50 Primary care physician: PCP NONE Discharging clinician: Ancelmo Cam Anticipated date of discharge: 06/17/17 - Patient Status Disposition: Home, Self-Care Condition: Good Functional capacity at discharge: independent ambulation Overall status at discharge: patient is progressing back to baseline - Discharge Instructions Instructions: Syncope (DC) Follow Up With: NONE,PCP [Primary Care Provider] - Additional Instructions: Please Follow up with your Primary Care Provider within 1 week of discharge. Please take all your home medications as prescribed. Please make efforts to quit smoking, watch your diet, and exercise regularly. Please return to the hospital if you experience new or worsening symptoms. - Diet and Activity Activity: increase activity as tolerated Diet: regular diet Interval History: Patient reports feeling fine. She is eager to go home. Counseled patient on lifestyle modification including smoking cessation. Hospital course: Ms. Martínez is a 51 year old female c PMHx of anxiety and depression who reports to the hospital c/o occipital Headache for 2 days s/p syncope in her car. Patient had no prodrome prior to syncope and did not bite her tongue or have incontinence, although she was confused upon waking. She reports LOC of a few minutes. She had a CT head that was concerning for a temporal lobe mass, but upon brain MRI this turned out to be artifact. Echo was normal. Carotid u/s showed 40-59% occulsion of the R Carotid and no plaque on the L. Patient's sxs had resolved and patient was dicharged home in good condition. - Time Spent with Patient Total time spent providing and/or coordinating discharge services: - Constitutional Vitals: Temp Pulse Resp BP Pulse Ox 98.0 F 76 14 108/72 95 06/17/17 15:16 06/17/17 15:16 06/17/17 15:16 06/17/17 15:16 06/17/17 15:16 General appearance: Present: A&O X 3 - Eye Eye exam: Present: PERRL - ENT ENT exam: Present: mucous membranes moist - Respiratory Respiratory exam: Present: CTAB. Absent: rales, rhonchi, wheezes - Cardiovascular Cardiovascular exam: Present: RRR, +S1, +S2. Absent: gallop, rubs, systolic murmur - GI/Abdominal GI/Abdominal exam: Present: normal bowel sounds, soft. Absent: tenderness - Extremities Exam Extremities exam: Present: warm. Absent: tenderness - Neurological Exam Neurological exam: Present: alert, oriented X3. Absent: no focal deficits - Psychiatric Psychiatric exam: Present: normal affect, normal mood - Skin Skin exam: Present: dry, warm <Robert Sequeira A - Last Filed: 06/17/17 19:42> Date of Encounter: 06/17/17 - Discharge Diagnosis (1) Syncope Status: Acute Qualifiers: Syncope type: unspecified Qualified Code(s): R55 - Syncope and collapse (2) Headache Status: Acute Qualifiers: Headache type: unspecified Headache chronicity pattern: acute headache Intractability: not intractable Qualified Code(s): R51 - Headache (3) Tobacco use Priority: Secondary Status: Chronic (4) Depression with anxiety Status: Acute (5) Unilateral carotid artery disease Priority: Secondary Status: Chronic Procedures/tests Complete & Pending: Procedures Performed prior 72 hours Category Date Time Status MR head/brain wo/w con [MR] Stat MRI 06/17/17 06:56 Completed ECG 12 lead ECG [ECG] Routine Y 06/17/17 03:50 Completed EV carotid duplex imaging BI Routine Y 06/17/17 06:57 Completed EV echocardiogram Routine Y 06/17/17 06:55 Completed Date of admission: 06/17/17 06:50 Primary care physician: PCP NONE Hospital course: Ms. Martínez is a 51 year old female - Time Spent with Patient Total time spent providing and/or coordinating discharge services: - Constitutional Vitals: Temp Pulse Resp BP Pulse Ox 98.0 F 76 14 108/72 95 06/17/17 15:16 06/17/17 15:16 06/17/17 15:16 06/17/17 15:16 06/17/17 15:16 - Attending Attestation I examined this patient and my medical decision-making was reviewed with the Resident Physician on 06/17/17. I agree with the documented findings, disposition and treatment plan as described except to the extent set forth below. Ms. Martínez was admitted for syncopal episode. She is afebrile with stable vitals and has negative MRI. Exam Alert. Comfortable Heart reg No wheeze Plan D/C today Follow up with PCP.
--- NOTE | 2017-06-18 15:47 | Carotid Imaging Report ---
Carotid Duplex Patient Name:Alma Martínez Order Number:[id number] Procedure Date:06/17/2017 Date:1965Age:51 yrs Gender:Female Lt BP:109 / 70 mmHg Rt.BP:100 / 69 mmHgHeart Rate: Location:[facility] Room #: [facility] Bending Roll Hand:Ar Bravo RN, RDCS Referring MD:Calixto Cordon MD centrifugal supervisor:None Reading MD:Steve Dyson MD Primary Indications:Syncope Risk Factors Yes/No Hypertension No Diabetes No Hypercholesterolemia No Smoking Current Yes Hx of TIA No Hx of CVA No Anticoagulants No Hx of CAD/PTCA No Previous Vascular Surgery No Impressions: The right internal carotid artery has a 40-59% stenosis. The left carotid artery is normal throughout. Recommendations: Risk factor reduction. Follow-up carotid duplex in 1 year. Test completed on 06/17/2017 at 9:35:00 am. Findings Carotid Duplex: Right: The right proximal common carotid artery has a PSV of 68 cm/s and a EDV of 17 cm/s. The right mid common carotid artery has a PSV of 77 cm/s and a EDV of 16 cm/s. The right distal common carotid artery has a PSV of 90 cm/s and a EDV of 28 cm/s. The right bifurcation has a PSV of 76 cm/s and a EDV of 28 cm/s. There is 40-59% stenosis in the right proximal internal carotid artery with a PSV of 133 cm/s and a EDV of 31 cm/s. The right mid internal carotid artery has a PSV of 64 cm/s and a EDV of 26 cm/s. The right distal internal carotid artery has a PSV of 79 cm/s and a EDV of 40 cm/s. The right eca has a PSV of 74 cm/s and a EDV of 9 cm/s. The right vertebral artery has a PSV of 42 cm/s and a EDV of 15 cm/s. The right distal internal carotid artery was not well visualized. Left: The left proximal common carotid artery has a PSV of 119 cm/s and a EDV of 29 cm/s. The left mid common carotid artery has a PSV of 103 cm/s and a EDV of 31 cm/s. The left distal common carotid artery has a PSV of 94 cm/s and a EDV of 23 cm/s. The left bifurcation has a PSV of 82 cm/s and a EDV of 19 cm/s. The left proximal internal carotid artery has a PSV of 99 cm/s and a EDV of 29 cm/s. The left mid internal carotid artery has a PSV of 92 cm/s and a EDV of 30 cm/s. The left distal internal carotid artery has a PSV of 70 cm/s and a EDV of 25 cm/s. The left eca has a PSV of 88 cm/s and a EDV of 15 cm/s. The left vertebral artery has a PSV of 40 cm/s and a EDV of 16 cm/s. The left distal internal carotid artery was not well visualized. Prior Study: No prior study available for comparison. Carotid Results Right PSV EDV Assessment Proximal CCA 68 17 Normal Mid CCA 77 16 Normal Distal CCA 90 28 Normal Bifurcation 76 28 Normal Proximal ICA 133 31 40-59% stenosis Mid ICA 64 26 Normal Distal ICA 79 40 Not Well Visualized ECA 74 9 Normal Vertebral Artery 42 15 Normal Left PSV EDV Assessment Proximal CCA 119 29 Normal Mid CCA 103 31 Normal Distal CCA 94 23 Normal Bifurcation 82 19 Normal Proximal ICA 99 29 Normal Mid ICA 92 30 Normal Distal ICA 70 25 Not Well Visualized ECA 88 15 Normal Vertebral Artery 40 16 Normal Ratio's Right ICA/CCA Ratio: 1.73 ICA/CCA Values: 133/77 Left ICA/CCA Ratio: 0.96 ICA/CCA Values: 99/103 Updated by Steve Dyson MD on 06/18/2017 3:42:25 PM electronically signed on 06/18/2017 3:42:37 PM with status of Final
== END 2017-06-17 18:25 | disposition home or self-care (01) ==
LOC: 3BNU 00:02 → EMEROO 00:02 → SUATTDRO 06:50 → 3BNU 07:15
PROVIDERS: ADMIT Internal Medicine; ATTEND Internal Medicine